=== PATIENT | female | born 1945 | race Caucasian/White ===

== ENCOUNTER → 2020-02-26 | Outpatient (CLI) | payer MEDICARE | END | disposition home or self-care (01) | LOC: RAD 12:06 | PROVIDERS: ATTEND Physician Assistant Surgical | DX: M16.12 Unilateral primary osteoarthritis, left hip (principal); M51.36 Other intervertebral disc degeneration, lumbar region; M94.252 Chondromalacia, left hip; M61.552 Other ossification of muscle, left thigh ==